=== PATIENT | female | born 1940 | race Caucasian/White ===

== ENCOUNTER 2018-08-24 09:44 | Outpatient (RCR) | payer MEDICARE, OTHER ==
--- NOTE | 2018-08-07 07:47 | NUR ---
08/04/18 Patient in today for Treatment team. Pt presents clean and neat, alert and oriented x 4. Pt is in a bright mood. Pt states that she is still speaking with her grandaughter. Pt states that she is happy they are reconnecting but states she is guarded because of the past situation between her and her grandaughter. Pt states that IOP is very supportive and this is like her second family. Pt denies any suicidal thoughts at present time. Pt will continue with IOP 2x/week. Pt will follow up in one month. Treatment team concluded.
[~2018-08-24] VITALS: Ht 152.4 cm; Wt 67.1 kg
[~2018-08-24 09:44] MED LIST: AZULFIDINE500 MG PO; BENAZEPRIL10 M1 PO; BENAZEPRIL20 M1 PO; CITALOPRAM20 MG PO; GLYBURIDE5 M1 PO; HYDROXYCHLOR200 M1 PO; JANUVIA100 MG PO; JARDIANCE10 MG PO; JARDIANCE25 MG PO; METFORMIN500 M1 PO; METOPROLOL SUCC25 MG PO; RHEUMATREX2.5 M1 PO; SIMVASTATIN40 MG PO; UNITHROID75 MCG PO
[2018-08-24 11:55] VITALS: BP 143/73
== END 2018-08-24 23:59 | disposition still patient (30) ==
LOC: PATHWAYS 09:44
PROVIDERS: ATTEND Specialist
DX: F33.8 Other recurrent depressive disorders (principal); F41.1 Generalized anxiety disorder